=== PATIENT | male | born 1950 | race Two or more races ===

== ENCOUNTER 2019-04-02 08:23 | Emergency (ER) | payer OTHER ==
[~2019-04-02] VITALS: Ht 160 cm; Wt 78.0 kg
[2019-04-02] MEDS ORDERED: KETOROLAC 60MG/2ML VIAL IM ONE (09:30)
[2019-04-02 10:15] VITALS: BP 156/88
== END 2019-04-02 10:17 | disposition home or self-care (01) ==
LOC: ER 08:46
DX: M79.10 Myalgia, unspecified site (principal)
CPT/HCPCS: 96372; 99283; J1885